=== PATIENT | female | born 1930 | race Caucasian/White ===

== ENCOUNTER → 2016-12-18 | Outpatient (CLI) | payer MEDICARE, OTHER ==
[2014-07-28 11:00] VITALS: BP 118/65
[~2016-12-18] MED LIST: ALBU8.5H6 IH; ALPR0.25 PO; AMLO2.5T2 PO; ASPI81TA2; ATEN25TA PO; Aspirin PO; BECL8.7A6 IH; BUPR75TA5 PO; CALC-98 PO; CALC200T3 PO; CITA10TA8 PO; DICL50TA2 PO; DICY20TA3 PO; DOCU-27 PO; FISH OIL OMEGA1 EACH PO; FLUT16SP2 NS; GLUC100018 PO; LACT1CAP21 PO; MELA1TAB13 PO; METO10TA81 PO; MULT-246 PO; OMEP40CA5 PO; OVAR; OXYM30SP NS; PILO5TAB16 PO; PLAN450T PO; PRED5TAB PO; SIMV10TA3 PO; SULF1TAB24 PO; VALA10005 PO; ZOLP5TAB PO; [UNRECOGNIZED DRUG - OTHER]
[2016-12-18 08:23] LABS: BASO # 0.1 x10^3/uL (0.0-0.2); BASO % 1 % (0-3); EOS % 3 % (0-3); HEMOGLOBIN 12.5 g/dL (12.0-15.5); LYMPH # 1.3 x10^3/uL (1.0-4.8); LYMPH % 21 % (24-48); MEAN CORPUSCULAR HEMOGLOBIN 31 pg (25-35); MEAN CORPUSCULAR HGB CONC 34 g/dL (31-37); MEAN CORPUSCULAR VOLUME 93 fL (79-100); MONO % 6 % (0-9); NEUT % 70 % (31-73); PLATELET COUNT 205 x10^3/uL (140-400); RED BLOOD COUNT 3.97 x10^6/uL (3.50-5.40); RED CELL DISTRIBUTION WIDTH 13.6 % (11.5-14.5); WHITE BLOOD COUNT 6.3 x10^3/uL (4.0-11.0)
[2016-12-18 08:33] LABS: ALBUMIN 3.6 g/dL (3.4-5.0); ALBUMIN/GLOBULIN RATIO 0.8 (1.0-1.7); C-REACTIVE PROTEIN 2.2 mg/L (0-3.3); CALCIUM 9.4 mg/dL (8.5-10.1); CREATININE 1.3 mg/dL (0.6-1.0); GFR 38.9; POTASSIUM 3.8 mmol/L (3.5-5.1); TOTAL BILIRUBIN 0.3 mg/dL (0.2-1.0); TOTAL PROTEIN 8.1 g/dL (6.4-8.2)
[2016-12-18 10:24] LABS: BILIRUBIN,URINE NEGATIVE (NEG); GLUCOSE,URINE NEGATIVE (NEG); NITRITE,URINE NEGATIVE (NEG); PROTEIN,URINE NEGATIVE (NEG-TRACE); UROBILINOGEN,URINE 0.2 mg/dL (0.2 mg/dL)
[2016-12-18 10:48] LABS: BACTERIA,URINE 0 /HPF (0-FEW); RBC,URINE 0 /HPF (0-2); SQUAMOUS EPITHELIAL CELL,UR FEW /LPF; WBC,URINE OCC /HPF (0-4)
[2016-12-18 17:14] LABS: C3 COMPLEMENT 91 mg/dL (82-167); C4 COMPLEMENT 7 mg/dL (14-44)
== END | disposition home or self-care (01) ==
LOC: LAB 07:50
PROVIDERS: ATTEND Nurse Practitioner
DX: M35.9 Systemic involvement of connective tissue, unspecified (principal)
CPT/HCPCS: 36415; 80053; 81001; 85027; 85651; 86140; 86160

== ENCOUNTER → 2017-09-06 | Outpatient (CLI) | payer MEDICARE, OTHER | END | disposition home or self-care (01) | LOC: KCIC MRI 09:24 | DX: S73.192A Other sprain of left hip, initial encounter (principal); M76.01 Gluteal tendinitis, right hip; R60.0 Localized edema; X58.XXXA Exposure to other specified factors, initial encounter; Y93.89 Activity, other specified; Y92.89 Other specified places as the place of occurrence of the external cause; Y99.8 Other external cause status | CPT/HCPCS: 73721 ==

== ENCOUNTER → 2019-06-18 | Outpatient (CLI) | payer OTHER ==
[2014-07-28 11:00] VITALS: BP 118/65
[~2019-06-18] MED LIST changes: +ASPI-630; -ASPI81TA2; +DOCU-109 PO; -DOCU-27 PO; +OMEP40CA45 PO; -OMEP40CA5 PO
--- NOTE | 2019-06-18 14:18 | KCIC ---
MRI Lumbar Spine without contrast History: Right sciatica, chronic pain into the right hip and right lower extremity Technique: Multiplanar, multi sequential noncontrast MR imaging was performed of the lumbar spine. Comparison: None Findings: There is some motion degradation. Lumbar vertebral body stature is maintained. There is minimal grade 1 anterior spondylolisthesis at L4-5, negligible anterior spondylolisthesis L3-4 and minimal posterior subluxation L1 relative to L2 and T12 relative to L1. There is no significant marrow edema. There is mild to moderate levoscoliosis centered near L2. There is mild right lateral subluxation L1 relative to L2. T12-L1: There is negligible posterior bulge. Spinal canal is adequate. Neural foramina are adequate. L1-L2: There is minimal bulge. There is mild indentation upon the ventral thecal sac, very mild narrowing of the far right lateral recess. There is mild buckling of the ligamentum flavum. Left neural foramen is adequate. There is mild posterior narrowing of the right neural foramen by facet. There is small hemangioma of the right L1 vertebral body. L2-L3: There is mild buckling of the ligamentum flavum and facet degenerative change. Neural foramina and spinal canal are adequate. L3-L4: There is moderate buckling of the ligamentum flavum and [id number] facet degenerative change. There is minimal narrowing of the far right lateral recess from posteriorly. Left neural foramen is adequate, mild narrowing of the right neural foramen primarily from posteriorly by facet and ligamentum flavum. L4-L5: There is partial uncovering of the posterior aspect of the disc due to spondylolisthesis with superimposed bulge. There is moderate to severe buckling of the ligamentum flavum and mild facet hypertrophic change. There is minimal fluid in the facet articulations greater on the right. Combination of findings results in moderate to severe spinal stenosis with limited preserved subarachnoid space, lateral recess stenosis bilaterally with contact of the descending L5 nerve roots. There is moderate left and mild right neural foramina compromise. L5-S1: There is minimal disc osteophyte complex in the inferior left neural foramen and left extraforaminal region. Spinal canal is adequate. There is moderate to severe narrowing of the left neural foramen greater distally with contact of the exiting left L5 nerve root by disc osteophyte complex. Right neural foramen is adequate. Impression: 1. There is moderate to severe spinal stenosis L4-5 with limited preserved subarachnoid space, lateral recess stenosis bilaterally with degree of contact of the descending L5 nerve roots. 2. There is moderate to severe narrowing of the left L5-S1 neural foramen, moderate narrowing on the left at L4-5, other minimal narrowing of the neural foramina as stated. 3. There is lumbar levoscoliosis. There is multilevel mild abnormal alignment as stated, multilevel facet degenerative change. Electronically signed by: Javier Benton MD (06/18/2019 2:15 PM) [facility] [place]
== END | disposition home or self-care (01) ==
LOC: KCIC MRI 13:03
PROVIDERS: ATTEND Orthopaedic Surgery
DX: M43.16 Spondylolisthesis, lumbar region (principal); M48.07 Spinal stenosis, lumbosacral region; M47.816 Spondylosis without myelopathy or radiculopathy, lumbar region; M25.78 Osteophyte, vertebrae; G89.29 Other chronic pain; M41.86 Other forms of scoliosis, lumbar region
CPT/HCPCS: 72148

== ENCOUNTER → 2019-07-21 | Outpatient (CLI) | payer MEDICARE, OTHER ==
[2014-07-28 11:00] VITALS: BP 118/65
[~2019-07-21] MED LIST changes: +IOHEXOL 180 MG/ML 10 ML VIAL. ONE; -OXYM30SP NS; +OXYM30SP25 NS; +SIMV10TA15 PO; -SIMV10TA3 PO; +methylPREDNISolone ACETATE 40 MG/ML VIAL. ONE; +methylPREDNISolone ACETATE 80 MG/ML VIAL. ONE
--- NOTE | 2019-07-21 14:17 | PAIN ---
DATE OF SERVICE: 07/21/2019 INITIAL CONSULTATION FOR PAIN CLINIC CHIEF COMPLAINT: Low back and right lower extremity pain. HISTORY OF PRESENT ILLNESS: This is an 88-year-old female who presents with history of pain in the low back, right greater than left lower extremity for many years, worse over the past 1 year, not a result of any specific injury or action that she is aware of, but reports pain in the low back, right posterior gluteus, lateral thigh, lateral anterior thigh, medial thigh on both sides, worse on the right side, worse with walking, standing, changing positions and with weightbearing activities. The patient reports it is sharp pain, stabbing, intermittent in intensity, but always present, changes during the day with activity, radiating into the lower extremities, again worse on the right, burning and aching in the back as well. She has had physical therapy, chiropractic treatment in the , exercise currently, physical therapy on and off since 1999 and epidural injections, which had helped as well in the . The patient reports she is taking heavy duty aspirin, ibuprofen, and meloxicam. The ibuprofen and aspirin has helped the pain, but meloxicam does not. The patient reports it awakens her from sleep at least 2-4 times a night, does not affect her bowel or bladder control, but does affect her ability to walk. She uses a scooter, walker or cane. She has a walker with her today. The patient rates her disability rating from 0 to 10, 10 being at its worse, a 5 with family and home responsibilities, recreation, social activity, 8 with occupational activities, 5 with self-care and 0 with life support activities. The patient did have an MRI scan of the lumbar spine showing moderate to severe spinal stenosis at L4-L5 with limited preserved subarachnoid space, lateral recess stenosis bilaterally with degree of contact of the descending L5 nerve roots with [id number] narrowing of the left L5-S1 neural foramen, moderate narrowing on the left at L4-L5. PAST MEDICAL HISTORY: Significant for shortness of breath, hypertension, irregular heart rate, gastroesophageal reflux, diverticulitis, arthritis, osteoarthritis of the knees, Sjogren syndrome. PREVIOUS SURGERY: Include cataract extraction, laparoscopic cholecystectomy, ORIF of both wrists and tonsillectomy. CURRENT MEDICATIONS: Include, daily baby aspirin, simvastatin, calcium, Colace, glucosamine, pilocarpine drops, Norvasc, atenolol, Celexa, omeprazole, calcium, melatonin, beclomethasone, Valtrex, Bactrim, lactobacillus, omega 3 oils, multivitamins, dicyclomine, diclofenac, zolpidem, Xanax and albuterol inhaler. ALLERGIES: THE PATIENT IS ALLERGIC TO MORPHINE, CODEINE, TRAMADOL, CEPHALOSPORINS, EQUINE SERUM. FAMILY HISTORY: Significant for respiratory and skin allergies. SOCIAL HISTORY: The patient does drink alcohol 2-4 drinks a month, not use any illegal, illicit or recreational drugs. The patient is a [employer], lives locally at the [facility] in [place], [place]. REVIEW OF SYSTEMS: Review of systems are positive for those items mentioned in history of present illness. All systems reviewed and otherwise negative. It is complete, full and well documented on the patient's chart. PHYSICAL EXAMINATION: VITAL SIGNS: The patient's blood pressure is 125/66, pulse 72, respirations 18, temperature 98.2 degrees Fahrenheit, height is 5 feet 6 inches, weight is 140 pounds. GENERAL: The patient is awake, alert, oriented, appropriate, very pleasant demeanor. HEENT: Showed normocephalic, atraumatic. Extraocular movements are intact and symmetrical. Oral cavity: Mucous membranes moist and pink. Dentition is intact. NECK: Shows anterior throat supple without palpable lymphadenopathy noted. Swallow reflex symmetrical. CHEST: Shows normal on inspection. Breath sounds are clear to auscultation bilaterally. HEART: Shows S1, S2 clear. No murmurs auscultated. ABDOMEN: Shows obese and soft, nontender, nondistended. No palpable organomegaly is noted. No rebound or guarding demonstrated. BACK: Shows spine grossly in the midline. Normal appearing thoracic kyphosis and lumbar lordotic curvature. Lumbar paraspinous muscle shows symmetrical on inspection, on palpation shows some moderate tenderness diffusely bilaterally, but only diffusely without significant radiation. The patient has good rotational motion of lumbar spine, both laterally greater than 10 degrees, right and left as well as extension greater than 10 degrees, forward flexion 45 degrees without significant difficulty, no tenderness over spinous processes, sacrum or sacroiliac regions. EXTREMITIES: Lower extremities show deep tendon reflexes 2+ in the patellar, 1+ tendo-calcaneus tendons. Motor exam is approximately 4 on a scale of 5, but equal and symmetrical with dorsiflexion, extension, quadriceps, and hamstring flexion. Peripheral pulses are 1+ posterior tibia. No peripheral edema is noted bilaterally. Lower extremities are warm and dry to touch, equal in color and appearance. Straight leg raise noted to be negative for reproduction of radicular symptoms bilaterally as is Gaenslen's and Fransico's maneuvers bilaterally. The patient is able to stand, has difficulty trying to stand from a seated position, she uses the arms of the chair significantly to help her out of the seat, difficulty trying to stand on her toes as she loses balance easily. She is using a walker to ambulate, has a slight shuffling gait, but no significant favor right or left lower extremity with ambulation. SKIN: Shows warm and dry, good turgor. No edema. No sores, rashes or bruising throughout. IMPRESSION: 1. This is an 88-year-old female with long history of low back and right greater than left lower extremity pain in a radicular fashion. 2. MRI scan of lumbar spine as noted. 3. Hypertension. 4. Arthritis. PLAN: Options were discussed with the patient including conservative medical managements, physical therapies and interventional techniques and she would like to pursue interventional techniques. We discussed a lumbar epidural steroid injection using description as well as anatomical models to describe the procedure. Risks were then discussed including, but not limited to bleeding, infection, possibility of epidural hematoma, subsequent neurological compromise, dural puncture, headaches, spinal cord and/or nerve damage, side effects of steroid medication and poor results regarding pain control. The patient understands and wished to proceed. The patient will return to clinic in approximately 2 weeks for followup. She was counseled as to return appointment, activity level and side effects to be aware of. DIAGNOSES: Lumbar radiculopathy with lumbar degenerative disk disease, lumbar spinal stenosis. PROCEDURE: Lumbar epidural steroid injection, translaminar approach at L4-L5 level using C-arm fluoroscopic guidance under sterile prep and drape using local anesthetic. MEDICATION INJECTED: A total of 120 mg Depo-Medrol plus 10 mL of preservative-free normal saline and 2 mL of contrast. CONDITION AT DISCHARGE: Stable. The patient tolerated the procedure well, had no complications. TUNDE BERGER MD DR: LINK/zana JOB#: [id number] / [id number] [facility] RYANN NAJERA MD
== END ==
LOC: PNCL 08:49
PROVIDERS: ATTEND Anesthesiology
DX: M51.16 Intervertebral disc disorders with radiculopathy, lumbar region (principal); M48.061 Spinal stenosis, lumbar region without neurogenic claudication; I10 Essential (primary) hypertension; K21.9 Gastro-esophageal reflux disease without esophagitis; Z87.39 Personal history of other diseases of the musculoskeletal system and connective tissue; Z90.49 Acquired absence of other specified parts of digestive tract; Z98.890 Other specified postprocedural states; Z98.49 Cataract extraction status, unspecified eye; Z88.6 Allergy status to analgesic agent; Z88.1 Allergy status to other antibiotic agents; Z88.5 Allergy status to narcotic agent; Z88.8 Allergy status to other drugs, medicaments and biological substances; Z72.89 Other problems related to lifestyle; Z96.1 Presence of intraocular lens
CPT/HCPCS: 62323; J1030; J1040; Q9965

== ENCOUNTER → 2019-08-04 | Outpatient (CLI) | payer MEDICARE, OTHER ==
[2014-07-28 11:00] VITALS: BP 118/65
[~2019-08-04] MED LIST changes: -IOHEXOL 180 MG/ML 10 ML VIAL. ONE; -methylPREDNISolone ACETATE 40 MG/ML VIAL. ONE; -methylPREDNISolone ACETATE 80 MG/ML VIAL. ONE
--- NOTE | 2019-08-04 13:32 | PAIN ---
DATE OF SERVICE: 08/04/2019 PROGRESS NOTE FOR PAIN CLINIC DIAGNOSES: Lumbar radiculopathy with lumbar degenerative disk disease, lumbar spinal stenosis. HISTORY OF PRESENT ILLNESS: The patient is an 88-year-old female who returns for followup status post lumbar epidural steroid injection x 1. The patient reports about 100% improvement with her back pain and right lower extremity pain. The patient reports she is very pleased with her progress and increasing her activity with greater ease and comfort, doing work activities, household activities, traveling with greater ease and comfort, walking better. The patient reports she is sleeping well at night, does not awaken her from sleep. The patient reports the pain is a 5 on a scale of 10 at its worst over the past week, 1 on average, 1 at its least and is a 1 today. The patient reports she is very pleased with her progress, reports only some pain in the low back itself, occasionally in the right hip, tight and stabbing, but much better. The patient reports no new motor or sensory deficits, no new bowel or bladder incontinence or other complaints. PHYSICAL EXAMINATION: VITAL SIGNS: The patient's blood pressure 119/70, pulse 61, respirations 18, temperature 97.9 degrees Fahrenheit, height is 61 inches and weight is 134 pounds. GENERAL: The patient is awake, alert, oriented, appropriate, very pleasant demeanor. HEENT: Shows normocephalic, atraumatic. Extraocular movements are intact and symmetrical. Oral cavity, mucous membranes moist and pink. NECK: Shows anterior throat supple. CHEST: Shows normal on inspection. Breath sounds are clear bilaterally. HEART: Shows S1, S2 clear. No murmurs auscultated. ABDOMEN: Soft, nontender, nondistended. BACK: Shows spine grossly in the midline. Lumbar paraspinous muscle shows symmetrical on inspection, on palpation shows some moderate tenderness diffusely bilaterally, but only diffusely without radiation. The patient has good rotational motion of lumbar spine, both laterally as well as extension and flexion. EXTREMITIES: Lower extremities show deep tendon reflexes 2+ in the patellar, 1+ tendo-calcaneus tendons. Motor exam is approximately 4 on a scale of 5, but equal and symmetrical bilaterally with dorsiflexion, extension, quadriceps and hamstring flexion. Peripheral pulses are 1+. No peripheral edema is noted. Options were discussed with the patient. The patient's old chart was reviewed as her current medication regimen updated. Current review of systems updated today as well. We will hold on any further injections at this time as the patient is doing quite a bit better, encouraged her to increase activity as tolerated. She will maintain doing stretching and strengthening exercises as well as walking daily and will follow up at this time on as needed basis. TUNDE BERGER MD DR: LINK/zana JOB#: [id number] / [id number]
== END | disposition home or self-care (01) ==
LOC: PNCL 09:54
PROVIDERS: ATTEND Anesthesiology
DX: M51.16 Intervertebral disc disorders with radiculopathy, lumbar region (principal); M48.061 Spinal stenosis, lumbar region without neurogenic claudication
CPT/HCPCS: G0463

== ENCOUNTER → 2019-10-22 | Outpatient (CLI) | payer MEDICARE, OTHER ==
[2014-07-28 11:00] VITALS: BP 118/65
[~2019-10-22] MED LIST changes: +HYDR200T71 PO; +IOHEXOL 180 MG/ML 10 ML VIAL. ONE; +methylPREDNISolone ACETATE 40 MG/ML VIAL. ONE; +methylPREDNISolone ACETATE 80 MG/ML VIAL. ONE
--- NOTE | 2019-10-22 13:25 | PAIN ---
DATE OF SERVICE: 10/22/2019 PROGRESS NOTE FOR PAIN CLINIC DIAGNOSIS: Lumbar radiculopathy with lumbar degenerative disk disease, lumbar spinal stenosis. HISTORY OF PRESENT ILLNESS: The patient is an 88-year-old female who returns for followup status post lumbar epidural steroid injection x 1 on 07/21/2019, patient did very well with 100% improvement at that time. The patient reports the pain is returning now in the low back and right leg, mostly in the posterior gluteus, lateral thigh, anterior thigh, medial thigh and lateral lower leg. The patient reports it is aching and tight cramping, radiating, becoming more constant and has been waking her from sleep at night as well over the past 1-2 weeks. The patient reports it is an 8 on a scale of 10, 9 at its worst, 8 on average, 5 at its least and is a 5 today. The patient reports no new motor or sensory deficits, but has still significant pain in the low back and right leg. The patient reports it is more noticeable with walking, standing, changing positions. Initially, she was doing very well with all these activities, but is beginning to return. PHYSICAL EXAMINATION: VITAL SIGNS: The patient's blood pressure 133/68, pulse 78, respirations 16, temperature 97.9 degrees Fahrenheit, weight is 130 pounds. GENERAL: The patient is awake, alert, oriented, appropriate, very pleasant demeanor. HEENT: Head shows normocephalic, atraumatic. The patient is wearing eyeglasses. Extraocular movements are intact and symmetrical. Oral cavity: Mucous membranes moist and pink. NECK: Shows anterior throat supple without palpable adenopathy noted. Full rotational motion of the cervical spine without difficulty. CHEST: Shows normal on inspection. Breath sounds clear to auscultation bilaterally. HEART: Shows S1, S2 clear. No murmurs auscultated. ABDOMEN: Soft, nontender, nondistended. No palpable organomegaly is noted. No rebound or guarding demonstrated. BACK: Shows spine grossly in the midline. Normal appearing thoracic kyphosis and minor flattening of the lumbar lordotic curvature. Lumbar paraspinous muscle shows symmetrical on inspection. On palpation shows some moderate tenderness diffusely bilaterally, diffusely without significant radiation. The patient has good rotational motion of the lumbar spine, both laterally as well as extension and flexion. EXTREMITIES: Lower extremities show deep tendon reflexes 2+ in the patellar, 1+ tendo-calcaneus tendons. Motor exam is approximately 4 on a scale of 5, but equal and symmetrical bilaterally with extension, flexion, quadriceps and hamstring flexion bilaterally as well. Peripheral pulses are 1+ in the posterior tibia. No peripheral edema is noted. Options were discussed with the patient. The patient's old chart was reviewed as her current medication regimen updated. Current review of systems updated today as well. We will proceed with a second in a series of lumbar epidural steroid injection today with fluoroscopic guidance. Risks were again discussed including, but not limited to bleeding, infection, possibility of epidural hematoma, subsequent neurological compromise, dural puncture, headaches, spinal cord and/or nerve damage, side effects of steroid medication and poor results regarding pain control. The patient understands and wished to proceed. The patient will return to clinic in approximately 2 weeks for followup. She was counseled on return appointment, activity level and side effects to be aware of. DIAGNOSIS: Lumbar radiculopathy with lumbar degenerative disk disease, lumbar spinal stenosis. PROCEDURE: Lumbar epidural steroid injection, translaminar approach at L4-L5 level using C-arm fluoroscopic guidance under sterile prep and drape using local anesthetic. MEDICATION INJECTED: A total of 120 mg Depo-Medrol plus 10 mL of preservative-free normal saline and 2 mL of contrast. CONDITION AT DISCHARGE: Stable. The patient tolerated procedure well, had no complications. TUNDE BERGER MD DR: LINK/zana JOB#: [id number] / [id number]
== END ==
LOC: PNCL 08:46
PROVIDERS: ATTEND Anesthesiology
DX: M51.16 Intervertebral disc disorders with radiculopathy, lumbar region (principal); M48.061 Spinal stenosis, lumbar region without neurogenic claudication
CPT/HCPCS: 62323; J1030; J1040; Q9965

== ENCOUNTER → 2020-01-07 | Outpatient (CLI) | payer MEDICARE, OTHER ==
[2014-07-28 11:00] VITALS: BP 118/65
[~2020-01-07] MED LIST changes: +ASPI-630 PO; +FENT1PAT15 TP; +GABA-585 PO; +MELO15TA23 PO; +TRAZ-118 PO; +VENL150C PO
--- NOTE | 2020-01-07 10:42 | PAIN ---
DATE OF SERVICE: 01/07/2020 PROGRESS NOTE FOR PAIN CLINIC DIAGNOSES: Lumbar radiculopathy with lumbar degenerative disk disease, lumbar spinal stenosis. HISTORY OF PRESENT ILLNESS: The patient is an 89-year-old female who returns for followup status post lumbar epidural steroid injection x 2, most recently seen 10/22/2019. The patient reports about 80% improvement in her low back and right lower extremity pain for about almost 2 months. The patient reports that the pain returned in the last week or 2 weeks this month with pain in the right hip, right posterior gluteus, lateral thigh, anterior thigh, medial thigh on the right side only. The patient reports it is worse with walking, standing, changing positions, especially sitting or standing from a seated position, describes as aching and tight, cramping in the right leg, rates as 9 on a scale of 10 at its worst, 7 on average, 4 at its least and is a 7 today. The patient reports no new motor or sensory deficits, no new bowel or bladder incontinence, still significant pain with ambulating, walking, standing, changing positions. Initially, she was doing much better with doing walking distances, household activities, traveling with greater ease and comfort, still reports it does not awaken her from sleep at night. PHYSICAL EXAMINATION: VITAL SIGNS: The patient's blood pressure is 136/75, pulse 80, respirations 18, temperature 98.7 degrees Fahrenheit, height is 5 feet 6 inches, weight is 129 pounds. GENERAL: The patient is awake, alert, oriented, appropriate, very pleasant demeanor. HEENT: Shows normocephalic, atraumatic. Extraocular movements intact and symmetrical. The patient is wearing eyeglasses. Extraocular movements are intact. Oral cavity: Mucous membranes moist and pink. Dentition is intact. NECK: Shows anterior throat supple without palpable lymphadenopathy noted. Swallow reflex symmetrical. CHEST: Shows normal on inspection. Breath sounds are clear bilaterally. HEART: Shows S1, S2 clear. No murmurs auscultated. ABDOMEN: Soft, nontender, nondistended. No palpable organomegaly is noted. No rebound or guarding demonstrated. BACK: Shows spine grossly in the midline. Normal appearing thoracic kyphosis and minor flattening of lumbar lordotic curvature. Lumbar paraspinous muscle shows symmetrical on inspection, on palpation shows some moderate tenderness diffusely bilaterally going diffusely without significant radiation. The patient has good rotational motion of lumbar spine, both laterally as well as extension and flexion without significant difficulty. EXTREMITIES: Lower extremities show deep tendon reflexes 2+ in the patellar, 1+ tendo-calcaneus tendons. Motor exam is approximately 4 on a scale of 5, but equal and symmetrical dorsiflexion, extension, right and left. Quadriceps and hamstring flexion 4/5 and equal bilaterally as well. Peripheral pulses are 1+. No peripheral edema is noted. Options were discussed with the patient. The patient's old chart was reviewed as his current medication regimen updated. Current review of systems updated today as well. We will proceed with a third in the series of lumbar epidural steroid injection today with fluoroscopic guidance. Risks were again discussed including, but not limited to bleeding, infection, possibility of epidural hematoma, subsequent neurological compromise, dural puncture, headaches, spinal cord and/or nerve damage, side effects of steroid medication and poor results regarding pain control. The patient understands and wished to proceed. The patient will return to clinic in approximately 2 weeks for followup. She was counseled on return appointment, activity level and side effects to be aware of. DIAGNOSES: Lumbar radiculopathy with lumbar degenerative disk disease, lumbar spinal stenosis. PROCEDURE: Lumbar epidural steroid injection, translaminar approach at the L4-L5 level using C-arm fluoroscopic guidance under sterile prep and drape using local anesthetic. MEDICATION INJECTED: Total of 120 mg Depo-Medrol plus 10 mL of preservative-free normal saline and 2 mL of contrast. CONDITION AT DISCHARGE: Stable. The patient tolerated the procedure well, had no complications. TUNDE BERGER MD DR: LINK/zana JOB#: [id number] / [id number]
== END | disposition home or self-care (01) ==
LOC: PNCL 09:01
PROVIDERS: ATTEND Anesthesiology
DX: M51.16 Intervertebral disc disorders with radiculopathy, lumbar region (principal); M48.061 Spinal stenosis, lumbar region without neurogenic claudication; Z98.890 Other specified postprocedural states; Z88.6 Allergy status to analgesic agent; Z88.1 Allergy status to other antibiotic agents; Z88.8 Allergy status to other drugs, medicaments and biological substances
CPT/HCPCS: 62323; J1030; J1040; Q9965

== ENCOUNTER → 2020-04-21 | Outpatient (CLI) | payer MEDICARE, OTHER ==
[2014-07-28 11:00] VITALS: BP 118/65
[~2020-04-21] MED LIST changes: +DEXT1DRO7 OP; +DICL100G54 TP; +HYDR2TAB31 PO; -IOHEXOL 180 MG/ML 10 ML VIAL. ONE; +PROAIR RESPICL90 MCG IH; -methylPREDNISolone ACETATE 40 MG/ML VIAL. ONE; -methylPREDNISolone ACETATE 80 MG/ML VIAL. ONE
--- NOTE | 2020-04-21 13:49 | KCIC ---
MRI Lumbar Spine without contrast History: Lumbar radiculopathy, spasms, severe right leg pain Technique: Multiplanar, multi sequential noncontrast MR imaging was performed of the lumbar spine. Comparison: June 18, 2019 Findings: There is some motion degradation. Lumbar vertebral body stature is unchanged overall preserved. There is again mild grade 1 anterior spondylolisthesis at L4-5, to a lesser degree at L3-4. There is also minimal posterior subluxation of L1 relative to L2 and T12 relative to L1. There is again [id number] levoscoliosis centered near L2. There is again mild right lateral subluxation L1 relative to L2. There is mild to moderate L5-S1 degenerative disc disease, also greater anteriorly at T12-L1 and minimally at L1-L2, mild disc desiccation L2-3 through L4-5. T12-L1: There is again minimal posterior bulge. Spinal canal and neural foramina are overall adequate. L1-L2: There is again negligible bulge superimposed on the minimally posteriorly subluxed L1 vertebral body margin. Spinal canal is not significantly narrowed. There is minimal buckling of the ligamentum flavum. There is mild posterior narrowing of the right neural foramen by facet, left neural foramen adequate. L2-L3: There is again mild facet degenerative change and buckling of the ligamentum flavum and a negligible bulge. Spinal canal and neural foramina are adequate. L3-L4: There is again [id number] buckling of the ligamentum flavum and facet degenerative change. There is mild narrowing of the far right lateral recess from posteriorly. There is mild narrowing of the right neural foramen, left neural foramen adequate. L4-L5: There is again broad posterior bulge. There is again buckling of the ligamentum flavum and mild facet degenerative change. Combination of findings again results in moderate to severe spinal stenosis with limited preserved subarachnoid space. There is again lateral recess stenosis bilaterally with contact of the descending L5 nerve roots. There is moderate to severe narrowing of the left neural foramen mostly from posteriorly by facet although also bulge at the inferior proximal margin. There is very mild narrowing of the right neural foramen. L5-S1: There is minimal disc osteophyte complex in the inferior left neural foramen and left extraforaminal region as seen previously, again moderate to severe narrowing of the left neural foramen with contact exiting left L5 nerve root. Spinal canal is adequate. Right neural foramen is adequate. Impression: 1. Findings are similar compared with the previous May 2019 exam. There is again moderate to severe spinal stenosis at L4-5 with lateral recess stenosis and contact of the descending L5 nerve roots bilaterally. There is moderate to severe narrowing of the left L4-5 and L5-S1 neural foramina, other minimal narrowing on the right at L1-2, L3-4, and L4-5. There is multilevel mild abnormal alignment as stated, multilevel facet degenerative change. There is lumbar levoscoliosis. Electronically signed by: Javier Benton MD (04/21/2020 1:47 PM) [id number]
== END ==
LOC: KCIC MRI 12:28
PROVIDERS: ATTEND Internal Medicine
DX: M51.37 Other intervertebral disc degeneration, lumbosacral region (principal); M48.062 Spinal stenosis, lumbar region with neurogenic claudication; M25.78 Osteophyte, vertebrae
CPT/HCPCS: 72148

== ENCOUNTER 2020-04-28 18:42 | Inpatient (IN) | payer MEDICARE, OTHER ==
[~2020-04-28] VITALS: Ht 167.6 cm; Wt 59.1 kg
[~2020-04-28 18:42] MED LIST changes: -DEXT1DRO7 OP; -DICL100G54 TP; -HYDR2TAB31 PO; -PROAIR RESPICL90 MCG IH
[2020-04-28 19:03] LABS: BASO % 1 % (0-3); EOS # 0.1 x10^3/uL (0.0-0.7); EOS % 3 % (0-3); HEMOGLOBIN 10.1 g/dL (12.0-15.5); LYMPH # 0.9 x10^3/uL (1.0-4.8); LYMPH % 18 % (24-48); MEAN CORPUSCULAR HEMOGLOBIN 32 pg (25-35); MEAN CORPUSCULAR HGB CONC 35 g/dL (31-37); MEAN CORPUSCULAR VOLUME 92 fL (79-100); MONO # 0.4 x10^3/uL (0.0-1.1); MONO % 8 % (0-9); NEUT # 3.7 x10^3/uL (1.8-7.7); NEUT % 71 % (31-73); PLATELET COUNT 252 x10^3/uL (140-400); RED BLOOD COUNT 3.13 x10^6/uL (3.50-5.40); RED CELL DISTRIBUTION WIDTH 14.3 % (11.5-14.5); WHITE BLOOD COUNT 5.2 x10^3/uL (4.0-11.0)
--- NOTE | 2020-04-28 19:16 | PHYS DOC ---
Past Medical History Past Medical History: GERD, Heart Disease, Hypertension, STD, Other Additional Past Medical Histor: vaginal herpes Past Surgical History: Cholecystectomy, Other Additional Past Surgical Histo: right wrist, "and a few others" Smoking Status: Former Smoker Alcohol Use: None Drug Use: None General Adult EDM: Chief Complaint: MECHANICAL FALL HPI: HPI: The history was obtained from the patient. Patient is a 89-year-old female who presents with a chief complaint of left wrist injury. Patient states just prior to arrival she fell with an outstretched arm. She noted immediate pain and deformity to her left wrist. She does note some bleeding to the wrist site. States she has had orthopedic surgery in the past by Dr. Herring. Denies any her head or any loss of consciousness. Has been able to ambulate since the fall. Notes the pain is aching and constant. Movement makes the pain worse. Nothing makes the pain better. No other complaints. Review of Systems: Review of Systems: Constitutional: Denies fever or chills. [] Eyes: Denies change in visual acuity. [] HENT: Denies nasal congestion or sore throat. [] Respiratory: Denies cough or shortness of breath. [] Cardiovascular: Denies chest pain or edema. [] GI: Denies abdominal pain, nausea, vomiting, bloody stools or diarrhea. [] : Denies dysuria. [] Musculoskeletal: Positive for wrist pain and fall Integument: Denies rash. [] Neurologic: Denies headache, focal weakness or sensory changes. [] Endocrine: Denies polyuria or polydipsia. [] Lymphatic: Denies swollen glands. [] Psychiatric: Denies depression or anxiety. [] Heart Score: Risk Factors: Risk Factors: DM, Current or recent (<one month) smoker, HTN, HLP, family history of CAD, obesity. Risk Scores: Score 0 - 3: 2.5% MACE over next 6 weeks - Discharge Home Score 4 - 6: 20.3% MACE over next 6 weeks - Admit for Clinical Observation Score 7 - 10: 72.7% MACE over next 6 weeks - Early Invasive Strategies Allergies: Allergies: Allergies Coded Allergies Type Severity Reaction Last Updated Verified Horse/Equine Containing Products Allergy Severe Itching 12/07/13 Yes tramadol Allergy Severe Anxiety 12/07/13 Yes Cephalosporins Allergy Intermediate Diarrhea 07/26/14 Yes cefditoren Allergy Intermediate Diarrhea 07/26/14 Yes codeine Allergy Intermediate 12/07/13 Yes levofloxacin Allergy Intermediate 12/07/13 Yes morphine Allergy Intermediate 12/07/13 Yes Physical Exam: PE: Constitutional: Well developed, well nourished, no acute distress, non-toxic appearance. [] HENT: Normocephalic, atraumatic, bilateral external ears normal, oropharynx moist, no oral exudates, nose normal. [] Eyes: PERRLA, EOMI, conjunctiva normal, no discharge. [] Neck: Normal range of motion, no tenderness, supple, no stridor. [] Cardiovascular:Heart rate regular rhythm, no murmur [] Lungs & Thorax: Bilateral breath sounds clear to auscultation [] Abdomen: soft, no tenderness, no masses, no pulsatile masses. [] Skin: Warm, dry, no erythema, no rash. [] Back: No tenderness, no CVA tenderness. [] Extremities: Obvious deformity to the left wrist. Swelling and ecchymosis noted. Distal ulna tip visible through skin. +2-4 radial pulse on the left. Sensation intact in all nerve distributions. Technical Report Writer strength slightly weakened but intact. No elbow pain. Neurologic: Alert and oriented X 3, normal motor function, normal sensory function, no focal deficits noted. [] Psychologic: Affect normal, judgement normal, mood normal. [] Current Patient Data: Labs: Laboratory Tests Test 04/28/20 18:53 White Blood Count 5.2 x10^3/uL (4.0-11.0) Red Blood Count 3.13 x10^6/uL (3.50-5.40) L Hemoglobin 10.1 g/dL (12.0-15.5) L Hematocrit 29.0 % (36.0-47.0) L Mean Corpuscular Volume 92 fL (79-100) Mean Corpuscular Hemoglobin 32 pg (25-35) Mean Corpuscular Hemoglobin Concent 35 g/dL (31-37) Red Cell Distribution Width 14.3 % (11.5-14.5) Platelet Count 252 x10^3/uL (140-400) Neutrophils (%) (Auto) 71 % (31-73) Lymphocytes (%) (Auto) 18 % (24-48) L Monocytes (%) (Auto) 8 % (0-9) Eosinophils (%) (Auto) 3 % (0-3) Basophils (%) (Auto) 1 % (0-3) Neutrophils # (Auto) 3.7 x10^3/uL (1.8-7.7) Lymphocytes # (Auto) 0.9 x10^3/uL (1.0-4.8) L Monocytes # (Auto) 0.4 x10^3/uL (0.0-1.1) Eosinophils # (Auto) 0.1 x10^3/uL (0.0-0.7) Basophils # (Auto) 0.0 x10^3/uL (0.0-0.2) Laboratory Tests 04/28/20 18:53 Vital Signs: Vital Signs Date Time Temp Pulse Resp B/P (MAP) Pulse Ox O2 Delivery O2 Flow Rate FiO2 04/29/20 03:37 62 135/46 (75) 04/29/20 03:00 97.9 18 100 Room Air 97.9 04/29/20 00:58 10 EKG: EKG: [] Radiology/Procedures: Radiology/Procedures: [facility] [address] [place] [address] IMAGING REPORT Signed PATIENT: JOSIAS BABIN ACCOUNT: [id number] : 1930 LOCATION: ER AGE: 89 SEX: F EXAM STATUS: REG ER ORD. PHYSICIAN: BOB SMITH DO REASON: left wrist pain PROCEDURE: WRIST 3V LEFT EXAM: PA, lateral and oblique views, left wrist DATE: 04/28/2020 6:53 PM INDICATION: Reason: left wrist pain / Spl. Instructions: / History: , fracture. COMPARISON: No prior FINDINGS: Views of the left wrist show transverse fracture through the distal radius and ulna in apex dorsal angulation with near full shaft with apex palmar displacement. The ulnar fracture is likely an open fracture. Ulnar styloid avulsion fracture is also seen. Advanced thumb CMC joint osteoarthritis. Scattered IP joint degenerative changes are partially profiled. No radiocarpal dislocation. IMPRESSION: Displaced distal radial and ulnar fractures as above with likely open ulnar fracture. Electronically signed by: Javier Kuo MD (04/28/2020 8:25 PM) [facility] DICTATED and SIGNED BY: JAVIER KUO MD DATE: 04/28/202024 [] Course & Med Decision Making: Course & Med Decision Making Pertinent Labs and Imaging studies reviewed. (See chart for details) [] Patient is a very pleasant 89-year-old female who presents with chief complaint of left wrist injury status post fall. Exam noted above. Clinically the patient does appear to have an open left distal wrist fracture. Orthopedic surgery was consulted. Given the open nature of the injury they did present to bedside. She was given 1 g Ancef. She was splinted prior to orthopedic surgery arrival. She was taken to OR for open washout and likely plating. She will be hospitalized to the hospitalist postoperatively. Remained hemodynamically stable with pain well controlled in the emergency department. Dragon Disclaimer: Dragon Disclaimer: This electronic medical record was generated, in whole or in part, using a voice recognition dictation system. Departure Departure Impression: Primary Impression: Open fracture of left distal radius and ulna Disposition: ADMITTED INPATIENT Condition: STABLE Referrals: KAYE FREY MD (PCP) Justicifation of Admission Dx: Justifications for Admission: Justification of Admission Dx: Yes Comments: open L distal wrist fxs BOB SMITH DO Apr 28, 2020 19:16
[2020-04-28 19:20] LABS: CALCIUM 9.4 mg/dL (8.5-10.1); CREATININE 1.4 mg/dL (0.6-1.0); GFR 35.4; POTASSIUM 4.3 mmol/L (3.5-5.1)
[2020-04-28] MEDS ORDERED: ceFAZolin SODIUM IV Push 1 GM VIAL. IVP ONE (19:30)
[2020-04-28] MEDS ORDERED: fentaNYL PF VIAL 100 MCG/2 ML VIAL IVP ONE (19:30)
[2020-04-28] MEDS ORDERED: BUPIVACAINE-EPI 0.5%-1:200000 MPF 30 ML VIAL. INJ ONE ×2 (20:00→20:30)
--- NOTE | 2020-04-28 20:28 | RAD ---
EXAM: PA, lateral and oblique views, left wrist DATE: 04/28/2020 6:53 PM INDICATION: Reason: left wrist pain / Spl. Instructions: / History: , fracture. COMPARISON: No prior FINDINGS: Views of the left wrist show transverse fracture through the distal radius and ulna in apex dorsal angulation with near full shaft with apex palmar displacement. The ulnar fracture is likely an open fracture. Ulnar styloid avulsion fracture is also seen. Advanced thumb CMC joint osteoarthritis. Scattered IP joint degenerative changes are partially profiled. No radiocarpal dislocation. IMPRESSION: Displaced distal radial and ulnar fractures as above with likely open ulnar fracture. Electronically signed by: Javier Villagran MD (04/28/2020 8:25 PM) [facility]ANCK
--- NOTE | 2020-04-28 20:51 | RAD ---
Examination: ELBOW LEFT 3V, WRIST 3V LEFT History: Reason: left elbow pain / Spl. Instructions: / History: Comparison/Correlation: None Findings: 3 view examination left elbow and 3 view examination left wrist performed. Cast material noted throughout the left elbow, forearm, and wrist. Degenerative narrowing of the lateral compartment of the elbow noted. Comminuted, displaced fractures of the distal radial metaphysis noted to extend intra-articularly are similar in orientation compared to images acquired earlier as part of a separate exam this evening. Oblique fracture of the distal ulnar metaphysis noted. Fracture of the ulnar styloid noted. Mild reduction in distal ulnar fracture. Degenerative remodeling of the left first carpometacarpal joint noted. Soft tissue swelling noted about the wrist. Impression: No significant change in orientation of the distal radial comminuted fractures. Mild reduction of the distal ulnar fracture. Electronically signed by: Bashir Toth MD (04/28/2020 8:49 PM) [id number]
[2020-04-28] MEDS ORDERED: MORPHINE SULFATE 2 MG/ML VIAL. IV PRN (21:15)
[2020-04-28] MEDS ORDERED: ONDANSETRON PF 4 MG/2 ML VIAL. IV PRN (21:15)
[2020-04-28] MEDS ORDERED: PROPOFOL 10 MG/ML (20ML) VIAL. IV ONE (22:10)
[2020-04-28] MEDS ORDERED: fentaNYL PF VIAL 100 MCG/2 ML VIAL ONE (22:10)
[2020-04-28] MEDS ORDERED: LIDOCAINE 2% PF 5 ML VIAL. ONE (22:10)
[2020-04-28] MEDS ORDERED: BUPIVACAINE MPF 0.5% 30 ML VIAL. ONE (22:22)
[2020-04-28] MEDS ORDERED: IV RINGERS,LACTATED 1000ML 1,000 ML IV SCH (22:22)
[2020-04-28] MEDS ORDERED: LIDOCAINE 1% Multi-Dose 20 ML VIAL. ONE (22:22)
[2020-04-28] MEDS ORDERED: PROCHLORPERAZINE 10 MG/2 ML VIAL. IV PRN (22:30)
[2020-04-28] MEDS ORDERED: LIDOCAINE 1% PF 2 ML VIAL. ID PRN (22:30)
[2020-04-28] MEDS ORDERED: FAMOTIDINE 20 MG/2 ML VIAL ONE (22:38)
--- NOTE | 2020-04-28 23:17 | PDOC2 ---
CONSULT Date of Consult Date of Consult DATE: 04/28/20 TIME: 22:59 Reason for Consult Reason for Consult: Open left wrist fracture Referring Physician Referring Physician: Emergency department Identification/Chief Complaint Chief Complaint Left wrist pain Source Source: Chart review, Patient History of Present Illness Reason for Visit: Patient is a very pleasant 89-year-old female who had a fall in the dining guerra at the [facility] and developed deformity and wrist pain as well as immediate bleeding and was brought into the emergency department. I was asked to see her in consultation for concern over open fracture. She denies any preceding symptoms including dizziness, lightheadedness, feelings of an irregular heartbeat. She was splinted in the emergency department and given Ancef. She tells me that her wrist hurts but it is tolerable. She denies any abnormal sensations in her hand. She mentions that she has had prior surgery on hardware removal on this wrist before. Family History Family History: No Significant Social History ALCOHOL: none Drugs: None Current Medications Current Medications Current Medications Cefazolin Sodium (Ancef) 1 gm 1X ONCE IVP Last administered on 04/28/20at 19:42; Start 04/28/20 at 19:30; Stop 04/28/20 at 19:31; Status DC Fentanyl Citrate (Fentanyl 2ml Vial) 50 mcg 1X ONCE IVP Last administered on 04/28/20at 19:43; Start 04/28/20 at 19:30; Stop 04/28/20 at 19:31; Status DC Bupivacaine HCl/ Epinephrine Bitart (Sensorcain-Epi 0.5%-1:023197 Mpf) 30 ml 1X ONCE INJ Last administered on 04/28/20at 20:07; Start 04/28/20 at 20:00; Stop 04/28/20 at 20:01; Status DC Bupivacaine HCl/ Epinephrine Bitart (Sensorcain-Epi 0.5%-1:296375 Mpf) 30 ml 1X ONCE INJ Last administered on 04/28/20at 20:19; Start 04/28/20 at 20:30; Stop 04/28/20 at 20:31; Status DC Ondansetron HCl (Zofran) 4 mg PRN Q8HRS PRN IV NAUSEA/VOMITING 1ST CHOICE; Start 04/28/20 at 21:15; Stop 04/29/20 at 21:14 Morphine Sulfate (Morphine Sulfate) 2 mg PRN Q2HR PRN IV SEVERE PAIN 7-10; Start 04/28/20 at 21:15; Stop 04/29/20 at 21:14 Propofol (Diprivan) 200 mg STK-MED ONCE IV ; Start 04/28/20 at 22:10; Stop 04/28/20 at 22:10; Status DC Lidocaine HCl (Lidocaine Pf 2% Vial) 5 ml STK-MED ONCE .ROUTE ; Start 04/28/20 at 22:10; Stop 04/28/20 at 22:10; Status DC Fentanyl Citrate (Fentanyl 2ml Vial) 100 mcg STK-MED ONCE .ROUTE ; Start 04/28/20 at 22:10; Stop 04/28/20 at 22:11; Status DC Lidocaine HCl (Lidocaine 1% 20ml Vial) 20 ml STK-MED ONCE .ROUTE ; Start 04/28/20 at 22:22; Stop 04/28/20 at 22:22; Status DC Ringer's Solution 1,000 ml @ 30 mls/hr Q24H IV ; Start 04/28/20 at 22:22; Stop 04/29/20 at 10:21 Lidocaine HCl (Xylocaine-Mpf 1% 2ml Vial) 2 ml PRN 1X PRN ID PRIOR TO IV START; Start 04/28/20 at 22:30; Stop 04/29/20 at 22:29 Prochlorperazine Edisylate (Compazine) 5 mg PACU PRN PRN IV NAUSEA, MRX1; Start 04/28/20 at 22:30; Stop 04/29/20 at 22:29 Bupivacaine HCl (Sensorcaine Mpf 0.5%) 30 ml STK-MED ONCE .ROUTE ; Start 04/19 at 22:22; Stop 04/28/20 at 22:22; Status DC Famotidine (Pepcid Vial) 20 mg STK-MED ONCE .ROUTE ; Start 04/28/20 at 22:38; Stop 04/28/20 at 22:38; Status DC Active Scripts Active Reported Gabapentin (Gabapentin) 100 Mg Capsule 100 Mg PO HS Meloxicam 15 Mg Tablet 1 Tab PO DAILY 30 Days Trazodone Hcl 50 Mg Tablet 25 Mg PO HS Effexor Xr (Venlafaxine Hcl) 150 Mg Cap.er.24h 50 Mg PO DAILY Aspirin 81 Mg Tab.chew 1 Tab PO DAILY FENTANYL 25mcg/hr (Fentanyl) 1 Each Patch.td72 1 Patch TP Q3DAYS Plaquenil (Hydroxychloroquine Sulfate) 200 Mg Tablet 200 Mg PO DAILY Tums (Calcium Carbonate) 200 Mg Tab.chew 1,177 Mg PO PRN PRN Melatonin 3 Mg Tablet (Melatonin/Pyridoxine) 1 Each Tablet 1 Each PO DAILY Multi-Vitamin Daily (Multivitamin) 1 Each Tablet 1 Each PO DAILY Fish Oil [place]-3 Softgel ([place]-3/Dha/Epa/Fish Oil) 1 Each Capsule.dr 1 Each PO BID Cholest Off (Plant Stanol Aniya) 450 Mg Tablet 900 Mg PO BID Flonase (Fluticasone Propionate) 16 Gm [place].susp 2 [place] NS DAILY Qvar 80MCG Inhaler (Beclomethasone Dipropionate) 8.7 Gm Aer.w.adap 2 Puff IH DAILY Dicyclomine Hcl 20 Mg Tablet 1 Tab PO BID Albuterol Sulfate Hfa Inhaler (Albuterol Sulfate) 8.5 Gm Hfa.aer.ad 8.5 Gm IH PRN BID PRN Celexa (Citalopram Hydrobromide) 10 Mg Tablet 30 Mg PO DAILY Omeprazole 40 Mg Capsule.dr 40 Mg PO BID Atenolol 25 Mg Tablet 12.5 Mg PO DAILY Norvasc (Amlodipine Besylate) 2.5 Mg Tablet 2.5 Mg PO DAILY Pilocarpine Hcl 5 Mg Tablet 7.5 Mg PO TID Glucosamine (Glucosamine Sulfate 2KCL) 1,000 Mg Tablet 1,500 Mg PO DAILY Colace (Docusate Sodium) 100 Mg Capsule 100 Mg PO DAILY Calcium + Vitamin D Tablet (Calcium Carbonate/Vitamin D3) 1 Each Tablet 500 Mg PO DAILY Allergies Allergies: Coded Allergies: Horse/Equine Containing Products (Verified Allergy, Severe, Itching, 12/07/13) hives tramadol (Verified Allergy, Severe, Anxiety, 12/07/13) "makes me crazy" Cephalosporins (Verified Allergy, Intermediate, Diarrhea, 07/26/14) cefditoren (Verified Allergy, Intermediate, Diarrhea, 07/26/14) codeine (Verified Allergy, Intermediate, 12/07/13) levofloxacin (Verified Allergy, Intermediate, 12/07/13) morphine (Verified Allergy, Intermediate, 12/07/13) Physical Exam General: Alert, Oriented X3, No acute distress HEENT: Atraumatic, EOMI Lungs: Other (Respirations are unlabored with symmetric chest rise) Heart: Regular rate Abdomen: Soft, No tenderness Extremities: No edema, Normal pulses Skin: Other (Pertinent integumentary exam as per musculoskeletal) Neuro: Normal speech, Strength at 5/5 X4 ext, Sensation intact Psych/Mental Status: Mental status NL, Mood NL MUSCULOSKELETAL: Other (Examination of her left upper extremity reveals skin abrasions and tears over her ulnar-sided posterior distal forearm and radial sided wrist. The ulnar wound, I am able to probe down to bone with a sterile Q- tip. She has gross deformity present. She is able to wiggle her fingers.) Vitals VITALS Vital Signs Date Time Temp Pulse Resp B/P (MAP) Pulse Ox O2 Delivery O2 Flow Rate FiO2 04/28/20 20:13 74 18 181/79 (113) 92 Room Air 04/28/20 18:42 98.7 98.7 Labs Labs Laboratory Tests Test 04/28/20 18:53 04/28/20 21:11 White Blood Count 5.2 x10^3/uL (4.0-11.0) Red Blood Count 3.13 x10^6/uL (3.50-5.40) Hemoglobin 10.1 g/dL (12.0-15.5) Hematocrit 29.0 % (36.0-47.0) Mean Corpuscular Volume 92 fL (79-100) Mean Corpuscular Hemoglobin 32 pg (25-35) Mean Corpuscular Hemoglobin Concent 35 g/dL (31-37) Red Cell Distribution Width 14.3 % (11.5-14.5) Platelet Count 252 x10^3/uL (140-400) Neutrophils (%) (Auto) 71 % (31-73) Lymphocytes (%) (Auto) 18 % (24-48) Monocytes (%) (Auto) 8 % (0-9) Eosinophils (%) (Auto) 3 % (0-3) Basophils (%) (Auto) 1 % (0-3) Neutrophils # (Auto) 3.7 x10^3/uL (1.8-7.7) Lymphocytes # (Auto) 0.9 x10^3/uL (1.0-4.8) Monocytes # (Auto) 0.4 x10^3/uL (0.0-1.1) Eosinophils # (Auto) 0.1 x10^3/uL (0.0-0.7) Basophils # (Auto) 0.0 x10^3/uL (0.0-0.2) Sodium Level 141 mmol/L (136-145) Potassium Level 4.3 mmol/L (3.5-5.1) Chloride Level 108 mmol/L (98-107) Carbon Dioxide Level 26 mmol/L (21-32) Anion Gap 7 (6-14) Blood Urea Nitrogen 28 mg/dL (7-20) Creatinine 1.4 mg/dL (0.6-1.0) Estimated GFR (Cockcroft-Gault) 35.4 Glucose Level 111 mg/dL (70-99) Calcium Level 9.4 mg/dL (8.5-10.1) SARS-CoV-2 Antigen (Rapid) Negative (NEGATIVE) Laboratory Tests Test 04/28/20 18:53 04/28/20 21:11 White Blood Count 5.2 x10^3/uL (4.0-11.0) Red Blood Count 3.13 x10^6/uL (3.50-5.40) Hemoglobin 10.1 g/dL (12.0-15.5) Hematocrit 29.0 % (36.0-47.0) Mean Corpuscular Volume 92 fL (79-100) Mean Corpuscular Hemoglobin 32 pg (25-35) Mean Corpuscular Hemoglobin Concent 35 g/dL (31-37) Red Cell Distribution Width 14.3 % (11.5-14.5) Platelet Count 252 x10^3/uL (140-400) Neutrophils (%) (Auto) 71 % (31-73) Lymphocytes (%) (Auto) 18 % (24-48) Monocytes (%) (Auto) 8 % (0-9) Eosinophils (%) (Auto) 3 % (0-3) Basophils (%) (Auto) 1 % (0-3) Neutrophils # (Auto) 3.7 x10^3/uL (1.8-7.7) Lymphocytes # (Auto) 0.9 x10^3/uL (1.0-4.8) Monocytes # (Auto) 0.4 x10^3/uL (0.0-1.1) Eosinophils # (Auto) 0.1 x10^3/uL (0.0-0.7) Basophils # (Auto) 0.0 x10^3/uL (0.0-0.2) Sodium Level 141 mmol/L (136-145) Potassium Level 4.3 mmol/L (3.5-5.1) Chloride Level 108 mmol/L (98-107) Carbon Dioxide Level 26 mmol/L (21-32) Anion Gap 7 (6-14) Blood Urea Nitrogen 28 mg/dL (7-20) Creatinine 1.4 mg/dL (0.6-1.0) Estimated GFR (Cockcroft-Gault) 35.4 Glucose Level 111 mg/dL (70-99) Calcium Level 9.4 mg/dL (8.5-10.1) SARS-CoV-2 Antigen (Rapid) Negative (NEGATIVE) Images Images X-rays were reviewed. Assessment/Plan Assessment/Plan Patient is a very pleasant 89-year-old female with an open left distal radius and ulna fracture. I did discuss with her the need for proceeding with irrigation debridement, antibiotics and stabilization of her fracture. I discus sed ex-fix placement and answered her questions. We will plan on proceeding to the OR when is available tonight. She will be admitted to the hospitalist and on antibiotics. GISELA DACOSTA II, MD Apr 28, 2020 23:17
--- NOTE | 2020-04-28 23:19 | PDOC4 ---
Operative Note Operative Note Date of procedure: 04/28/2020 Surgeon: Parish Dacosta Preoperative diagnosis: Open left distal radius and ulna fracture Postoperative diagnosis: Same Anesthesia: General Procedure performed: Irrigation and debridement down to bone of open fracture Closed reduction and percutaneous pinning left distal radius fracture Blood loss: 10mL Findings:, Acute fractures Complications: none Components inserted: 32 Kwire Reason for procedure: Patient is a very pleasant 89-year-old female with an open fracture. Please see my consult note in her emergency department notes for further details. I had a discussion of the risks, benefits, and alternatives to the above surgery with her and she elected to proceed. Description of procedure: Patient was greeted in the preoperative area by myself or the correct extremity was verified and marked. She was taken back to the operative suite and transferred gently supine to the operating room table with all pressure points padded. She underwent successful induction of a general anesthetic. Nonsterile tourniquet was applied and in place to her left upper arm. We proceeded to prep and drape left upper extremity in her usual sterile fashion and conducted our standard preoperative timeout. After this, I exsanguinated the extremity and insufflated tourniquet to 200 mmHg. I then inspected her soft tissues. She had skin tears over her radial and ulnar posterior forearm. I irrigated everything out. I then identified the open fracture site and extended the wound 1 cm proximal and distal and exposed the fracture site with blunt dissection using a fine tipped hemostat. I placed Homans around the ulnar fracture and thoroughly irrigated the wound out with about 3000 mL of sterile fluid. After this, considering her soft tissue envelope I decided that the less I could violate this was probably in her best interest and I elected to perform a closed reduction and percutaneous pinning which I accomplished using fluoroscopy as a guide. I inserted 1 K wire, her bone was quite soft I then bent and cut the K wire and placed a Yuliya ball. After this, I placed Steri-Strips at the skin tears with Xeroform overlying this. I placed Xeroform around the incision I made as well. I then cut and wrapped gauze around the K wire site. I placed sterile gauze over the rest of the skin tears and wounds. I then placed 4 inch soft roll over this and wrapped it around and then placed a sugar tong splint with a gentle mold, padding her elbow very well. After this, she is awake from anesthesia, tolerated surgery well. No complications. At the conclusion, she was extubated and transferred gently supine to the recovery room cart and taken to PACU in stable and extubated condition. Postoperative plan is to admit her to the floor under the care of the hospitalist. I will follow along. She will receive postoperative a ntibiotics. She will be nonweightbearing left upper extremity. PARISH DACOSTA II, MD Apr 28, 2020 23:19
[2020-04-28] MEDS ORDERED: ONDANSETRON PF 4 MG/2 ML VIAL. ONE ×2 (23:36→23:44)
[2020-04-28] MEDS ORDERED: niCARdipine INJ. IV ONE (23:47)
[2020-04-29] VITALS (14 sets, daily range): BP systolic 112–156; BP diastolic 46–72
[2020-04-29] MEDS ORDERED: MORPHINE SULFATE 2 MG/ML VIAL. IV PRN (00:30)
[2020-04-29] MEDS ORDERED: fentaNYL PF VIAL 100 MCG/2 ML VIAL IVP PRN ×2 (00:30)
[2020-04-29] MEDS ORDERED: PROAIR RESPICL90 MCG IH (00:53)
[2020-04-29] MEDS ORDERED: DEXT1DRO7 OP (00:55)
[2020-04-29] MEDS ORDERED: DICL100G54 TP (00:56)
[2020-04-29] MEDS: HYDROcodone/APAP 5/325MG 1 TAB TABLET PO PRN ×4 (01:29→20:25)
[2020-04-29] MEDS ORDERED: HYDR2TAB31 PO (02:05)
[2020-04-29] MEDS ORDERED: HYDROmorphone 2 MG TABLET PO PRN (02:15)
[2020-04-29] MEDS: ceFAZolin SODIUM IV Push 1 GM VIAL. IVP SCH ×3 (02:44→13:14)
[2020-04-29 05:42] LABS: BASO % 1 % (0-3); EOS # 0.1 x10^3/uL (0.0-0.7); EOS % 2 % (0-3); HEMATOCRIT 25.4 % (36.0-47.0); HEMOGLOBIN 8.6 g/dL (12.0-15.5); LYMPH % 18 % (24-48); MEAN CORPUSCULAR HEMOGLOBIN 31 pg (25-35); MEAN CORPUSCULAR HGB CONC 34 g/dL (31-37); MEAN CORPUSCULAR VOLUME 93 fL (79-100); MONO # 0.5 x10^3/uL (0.0-1.1); MONO % 8 % (0-9); NEUT # 4.1 x10^3/uL (1.8-7.7); NEUT % 71 % (31-73); PLATELET COUNT 219 x10^3/uL (140-400); RED BLOOD COUNT 2.75 x10^6/uL (3.50-5.40); RED CELL DISTRIBUTION WIDTH 14.3 % (11.5-14.5); WHITE BLOOD COUNT 5.7 x10^3/uL (4.0-11.0)
[2020-04-29 05:49] LABS: CALCIUM 8.9 mg/dL (8.5-10.1); CREATININE 1.3 mg/dL (0.6-1.0); GFR 38.6; POTASSIUM 4.2 mmol/L (3.5-5.1)
--- NOTE | 2020-04-29 08:55 | PDOC ---
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 The pain medication that she is currently getting is working well. She tells me she has not had much pain in her wrist at all, and occasional ache. Vitals Vital Signs Date Time Temp Pulse Resp B/P (MAP) Pulse Ox O2 Delivery O2 Flow Rate FiO2 04/29/20 07:05 98.2 60 18 112/46 (68) 92 Room Air 98.2 04/29/20 04:50 10.0 Labs Laboratory Tests Test 04/28/20 18:53 04/28/20 21:11 04/29/20 04:33 White Blood Count 5.2 x10^3/uL (4.0-11.0) 5.7 x10^3/uL (4.0-11.0) Red Blood Count 3.13 x10^6/uL (3.50-5.40) 2.75 x10^6/uL (3.50-5.40) Hemoglobin 10.1 g/dL (12.0-15.5) 8.6 g/dL (12.0-15.5) Hematocrit 29.0 % (36.0-47.0) 25.4 % (36.0-47.0) Mean Corpuscular Volume 92 fL (79-100) 93 fL (79-100) Mean Corpuscular Hemoglobin 32 pg (25-35) 31 pg (25-35) Mean Corpuscular Hemoglobin Concent 35 g/dL (31-37) 34 g/dL (31-37) Red Cell Distribution Width 14.3 % (11.5-14.5) 14.3 % (11.5-14.5) Platelet Count 252 x10^3/uL (140-400) 219 x10^3/uL (140-400) Neutrophils (%) (Auto) 71 % (31-73) 71 % (31-73) Lymphocytes (%) (Auto) 18 % (24-48) 18 % (24-48) Monocytes (%) (Auto) 8 % (0-9) 8 % (0-9) Eosinophils (%) (Auto) 3 % (0-3) 2 % (0-3) Basophils (%) (Auto) 1 % (0-3) 1 % (0-3) Neutrophils # (Auto) 3.7 x10^3/uL (1.8-7.7) 4.1 x10^3/uL (1.8-7.7) Lymphocytes # (Auto) 0.9 x10^3/uL (1.0-4.8) 1.0 x10^3/uL (1.0-4.8) Monocytes # (Auto) 0.4 x10^3/uL (0.0-1.1) 0.5 x10^3/uL (0.0-1.1) Eosinophils # (Auto) 0.1 x10^3/uL (0.0-0.7) 0.1 x10^3/uL (0.0-0.7) Basophils # (Auto) 0.0 x10^3/uL (0.0-0.2) 0.0 x10^3/uL (0.0-0.2) Sodium Level 141 mmol/L (136-145) 142 mmol/L (136-145) Potassium Level 4.3 mmol/L (3.5-5.1) 4.2 mmol/L (3.5-5.1) Chloride Level 108 mmol/L (98-107) 109 mmol/L (98-107) Carbon Dioxide Level 26 mmol/L (21-32) 25 mmol/L (21-32) Anion Gap 7 (6-14) 8 (6-14) Blood Urea Nitrogen 28 mg/dL (7-20) 24 mg/dL (7-20) Creatinine 1.4 mg/dL (0.6-1.0) 1.3 mg/dL (0.6-1.0) Estimated GFR (Cockcroft-Gault) 35.4 38.6 Glucose Level 111 mg/dL (70-99) 99 mg/dL (70-99) Calcium Level 9.4 mg/dL (8.5-10.1) 8.9 mg/dL (8.5-10.1) SARS-CoV-2 Antigen (Rapid) Negative (NEGATIVE) Laboratory Tests Test 04/28/20 18:53 04/28/20 21:11 04/29/20 04:33 White Blood Count 5.2 x10^3/uL (4.0-11.0) 5.7 x10^3/uL (4.0-11.0) Red Blood Count 3.13 x10^6/uL (3.50-5.40) 2.75 x10^6/uL (3.50-5.40) Hemoglobin 10.1 g/dL (12.0-15.5) 8.6 g/dL (12.0-15.5) Hematocrit 29.0 % (36.0-47.0) 25.4 % (36.0-47.0) Mean Corpuscular Volume 92 fL (79-100) 93 fL (79-100) Mean Corpuscular Hemoglobin 32 pg (25-35) 31 pg (25-35) Mean Corpuscular Hemoglobin Concent 35 g/dL (31-37) 34 g/dL (31-37) Red Cell Distribution Width 14.3 % (11.5-14.5) 14.3 % (11.5-14.5) Platelet Count 252 x10^3/uL (140-400) 219 x10^3/uL (140-400) Neutrophils (%) (Auto) 71 % (31-73) 71 % (31-73) Lymphocytes (%) (Auto) 18 % (24-48) 18 % (24-48) Monocytes (%) (Auto) 8 % (0-9) 8 % (0-9) Eosinophils (%) (Auto) 3 % (0-3) 2 % (0-3) Basophils (%) (Auto) 1 % (0-3) 1 % (0-3) Neutrophils # (Auto) 3.7 x10^3/uL (1.8-7.7) 4.1 x10^3/uL (1.8-7.7) Lymphocytes # (Auto) 0.9 x10^3/uL (1.0-4.8) 1.0 x10^3/uL (1.0-4.8) Monocytes # (Auto) 0.4 x10^3/uL (0.0-1.1) 0.5 x10^3/uL (0.0-1.1) Eosinophils # (Auto) 0.1 x10^3/uL (0.0-0.7) 0.1 x10^3/uL (0.0-0.7) Basophils # (Auto) 0.0 x10^3/uL (0.0-0.2) 0.0 x10^3/uL (0.0-0.2) Sodium Level 141 mmol/L (136-145) 142 mmol/L (136-145) Potassium Level 4.3 mmol/L (3.5-5.1) 4.2 mmol/L (3.5-5.1) Chloride Level 108 mmol/L (98-107) 109 mmol/L (98-107) Carbon Dioxide Level 26 mmol/L (21-32) 25 mmol/L (21-32) Anion Gap 7 (6-14) 8 (6-14) Blood Urea Nitrogen 28 mg/dL (7-20) 24 mg/dL (7-20) Creatinine 1.4 mg/dL (0.6-1.0) 1.3 mg/dL (0.6-1.0) Estimated GFR (Cockcroft-Gault) 35.4 38.6 Glucose Level 111 mg/dL (70-99) 99 mg/dL (70-99) Calcium Level 9.4 mg/dL (8.5-10.1) 8.9 mg/dL (8.5-10.1) SARS-CoV-2 Antigen (Rapid) Negative (NEGATIVE) Notes She is awake and alert in bed, eating breakfast. She has some edema at her fingertips, she can wiggle all her fingers. Splint is intact. Assessment and Plan We will plan on 24 hours of antibiotics postoperatively and then she can be discharged. She should be nonweightbearing left upper extremity, keep it elevated and keep the splint clean and dry. I discussed her case with her nurse as well as with GISELA Rosado II, MD Apr 29, 2020 08:55
--- NOTE | 2020-04-29 10:05 | NUR ---
SW following. Discussed with RN, pt resides at [facility], room air, GI soft diet, COVID-19 negative. Pt had surgery today. Dr. Molina anticipates possible discharge back to [facility] tomorrow (04/30/2020). ALEJANDRO will continue to follow.
--- NOTE | 2020-04-29 11:24 | PDOC1 ---
History and Physical Date of Service: DOS: DATE: 04/29/20 TIME: 11:18 History of Present Illness: HPI: 89-year-old female who presents with a chief complaint of left wrist injury. Patient states just prior to arrival she fell with an outstretched arm. She noted immediate pain and deformity to her left wrist. She does note some bleeding to the wrist site. States she has had orthopedic surgery in the past by Dr. Herring. Denies any her head or any loss of consciousness. Has been able to ambulate since the fall. Notes the pain is aching and constant. Movement makes the pain worse. Nothing makes the pain better. No other complaints. Patient seen and examined bedside after ORIF with orthopedics. Patient states pain is well controlled. Past Medical/Surgical History: PMH/PSH: Past Medical History: GERD, Heart Disease, Hypertension, STD, vaginal herpes Past Surgical History: Cholecystectomy Allergies: Allergies: Coded Allergies: Horse/Equine Containing Products (Verified Allergy, Severe, Itching, 12/07/13) hives tramadol (Verified Allergy, Severe, Anxiety, 12/07/13) "makes me crazy" Cephalosporins (Verified Allergy, Intermediate, Diarrhea, 07/26/14) cefditoren (Verified Allergy, Intermediate, Diarrhea, 07/26/14) codeine (Verified Allergy, Intermediate, 12/07/13) levofloxacin (Verified Allergy, Intermediate, 12/07/13) morphine (Verified Allergy, Intermediate, 12/07/13) Family History: Family History: Reviewed and none reported Social History: Social History: Smoking Status: Former Smoker Alcohol Use: None Drug Use: None Current Medications: Current Medications Current Medications Cefazolin Sodium (Ancef) 1 gm 1X ONCE IVP Last administered on 04/28/20at 19:42; Start 04/28/20 at 19:30; Stop 04/28/20 at 19:31; Status DC Fentanyl Citrate (Fentanyl 2ml Vial) 50 mcg 1X ONCE IVP Last administered on 04/28/20at 19:43; Start 04/28/20 at 19:30; Stop 04/28/20 at 19:31; Status DC Bupivacaine HCl/ Epinephrine Bitart (Sensorcain-Epi 0.5%-1:111189 Mpf) 30 ml 1X ONCE INJ Last administered on 04/28/20at 20:07; Start 04/28/20 at 20:00; Stop 04/28/20 at 20:01; Status DC Bupivacaine HCl/ Epinephrine Bitart (Sensorcain-Epi 0.5%-1:893970 Mpf) 30 ml 1X ONCE INJ Last administered on 04/28/20at 20:19; Start 04/28/20 at 20:30; Stop 04/28/20 at 20:31; Status DC Ondansetron HCl (Zofran) 4 mg PRN Q8HRS PRN IV NAUSEA/VOMITING 1ST CHOICE; Start 04/28/20 at 21:15; Stop 04/29/20 at 21:14 Morphine Sulfate (Morphine Sulfate) 2 mg PRN Q2HR PRN IV SEVERE PAIN 7-10; Start 04/28/20 at 21:15; Stop 04/29/20 at 02:07; Status DC Propofol (Diprivan) 200 mg STK-MED ONCE IV ; Start 04/28/20 at 22:10; Stop 04/28/20 at 22:10; Status DC Lidocaine HCl (Lidocaine Pf 2% Vial) 5 ml STK-MED ONCE .ROUTE ; Start 04/28/20 at 22:10; Stop 04/28/20 at 22:10; Status DC Fentanyl Citrate (Fentanyl 2ml Vial) 100 mcg STK-MED ONCE .ROUTE ; Start 04/28/20 at 22:10; Stop 04/28/20 at 22:11; Status DC Lidocaine HCl (Lidocaine 1% 20ml Vial) 20 ml STK-MED ONCE .ROUTE ; Start 04/28/20 at 22:22; Stop 04/28/20 at 22:22; Status DC Ringer's Solution 1,000 ml @ 30 mls/hr Q24H IV ; Start 04/28/20 at 22:22; Stop 04/29/20 at 10:21; Status DC Lidocaine HCl (Xylocaine-Mpf 1% 2ml Vial) 2 ml PRN 1X PRN ID PRIOR TO IV START; Start 04/28/20 at 22:30; Stop 04/29/20 at 22:29 Prochlorperazine Edisylate (Compazine) 5 mg PACU PRN PRN IV NAUSEA, MRX1; Start 04/28/20 at 22:30; Stop 04/29/20 at 22:29 Bupivacaine HCl (Sensorcaine Mpf 0.5%) 30 ml STK-MED ONCE .ROUTE ; Start 04/28/20 at 22:22; Stop 04/28/20 at 22:22; Status DC Famotidine (Pepcid Vial) 20 mg STK-MED ONCE .ROUTE ; Start 04/28/20 at 22:38; Stop 04/28/20 at 22:38; Status DC Cefazolin Sodium (Ancef) 1 gm Q6H IVP Last administered on 04/29/20at 08:45; Start 04/29/20 at 02:00; Stop 04/29/20 at 14:01 Ondansetron HCl (Zofran) 4 mg STK-MED ONCE .ROUTE ; Start 04/28/20 at 23:36; Stop 04/28/20 at 23:37; Status DC Ondansetron HCl (Zofran) 4 mg STK-MED ONCE .ROUTE ; Start 04/28/20 at 23:44; Stop 04/28/20 at 23:44; Status DC Nicardipine HCl (Cardene) 25 mg STK-MED ONCE IV ; Start 04/28/20 at 23:47; Stop 04/28/20 at 23:48; Status DC Fentanyl Citrate (Fentanyl 2ml Vial) 50 mcg PRN Q10MIN PRN IVP SEVERE PAIN 7- 10; Start 04/29/20 at 00:30 Fentanyl Citrate (Fentanyl 2ml Vial) 25 mcg PRN Q10MIN PRN IVP SEVERE PAIN 7- 10; Start 04/29/20 at 00:30 Morphine Sulfate (Morphine Sulfate) 2 mg PRN Q10MIN PRN IV SEVERE PAIN 7-10; Start 04/29/20 at 00:30; Stop 04/29/20 at 02:07; Status DC Acetaminophen/ Hydrocodone Bitart (Lortab 5/325) 1 tab PRN Q4HRS PRN PO MODERATE PAIN 4-6 Last administered on 04/29/20at 06:28; Start 04/29/20 at 00:45 Hydromorphone HCl (Dilaudid) 2 mg PRN Q6HRS PRN PO SEVERE PAIN 7-10; Start 04/29/20 at 02:15 Active Scripts Active Reported Dilaudid (Hydromorphone Hcl) 2 Mg Tablet 1 Tab PO PRN Q6HRS PRN MDD 2 Tablet(s) 5 Days Voltaren (Diclofenac Sodium) 100 Gm Gel..gram. 1 Gm TP QID PRN 30 Days apply to affected area(s) Artificial Tears (Dextran 70/Hypromellose) 1 Each Droperette 1 Each OP BID PRN Proair Respiclick (Albuterol Sulfate) 90 Mcg Aer.pow.ba 2 Puff IH PRN Q6HRS PRN Gabapentin (Gabapentin) 100 Mg Capsule 300 Mg PO BID Meloxicam 15 Mg Tablet 1 Tab PO DAILY 30 Days Trazodone Hcl 50 Mg Tablet 25 Mg PO HS Effexor Xr (Venlafaxine Hcl) 150 Mg Cap.er.24h 75 Mg PO DAILY Aspirin 81 Mg Tab.chew 1 Tab PO DAILY FENTANYL 25mcg/hr (Fentanyl) 1 Each Patch.td72 1 Patch TP Q3DAYS Plaquenil (Hydroxychloroquine Sulfate) 200 Mg Tablet 200 Mg PO DAILY Tums (Calcium Carbonate) 200 Mg Tab.chew 1,177 Mg PO PRN PRN Melatonin 3 Mg Tablet (Melatonin/Pyridoxine) 1 Each Tablet 1 Each PO DAILY Multi-Vitamin Daily (Multivitamin) 1 Each Tablet 1 Each PO DAILY Fish Oil [place]-3 Softgel ([place]-3/Dha/Epa/Fish Oil) 1 Each Capsule.dr 1 Each PO BID Cholest Off (Plant Stanol Aniya) 450 Mg Tablet 900 Mg PO BID Flonase (Fluticasone Propionate) 16 Gm Converse.susp 2 Converse NS DAILY Qvar 80MCG Inhaler (Beclomethasone Dipropionate) 8.7 Gm Aer.w.adap 2 Puff IH DAILY Dicyclomine Hcl 20 Mg Tablet 1 Tab PO BID Albuterol Sulfate Hfa Inhaler (Albuterol Sulfate) 8.5 Gm Hfa.aer.ad 8.5 Gm IH PRN BID PRN Celexa (Citalopram Hydrobromide) 10 Mg Tablet 30 Mg PO DAILY Omeprazole 40 Mg Capsule.dr 40 Mg PO BID Atenolol 25 Mg Tablet 12.5 Mg PO DAILY Norvasc (Amlodipine Besylate) 2.5 Mg Tablet 2.5 Mg PO DAILY Pilocarpine Hcl 5 Mg Tablet 7.5 Mg PO TID Glucosamine (Glucosamine Sulfate 2KCL) 1,000 Mg Tablet 1,500 Mg PO DAILY Colace (Docusate Sodium) 100 Mg Capsule 100 Mg PO DAILY Calcium + Vitamin D Tablet (Calcium Carbonate/Vitamin D3) 1 Each Tablet 500 Mg PO DAILY ROS: Review of Systems Review of System REVIEW OF SYSTEMS: GENERAL: Denies weakness SKIN: No bruising, hair changes or rashes. EYES: No blurred, double or loss of vision. NOSE AND THROAT: No history of nosebleeds, hoarseness or sore throat. HEART: No history of palpitations, chest pain or shortness of breath on exertion. LUNGS: Denies cough, hemoptysis, wheezing or shortness of breath. GASTROINTESTINAL: Denies changes in appetite, nausea, vomiting, diarrhea or constipation. GENITOURINARY: No history of frequency, urgency, hesitancy or nocturia. NEUROLOGIC: Denies history of numbness, tingling, or tremor. PSYCHIATRIC: No history of panic, anxiety or depression. ENDOCRINE: No history of heat or cold intolerance, polyuria or polydipsia. EXTREMITIES: Denies joint pain, pain on walking or stiffness. Physical Exam: Vital Signs: Vital Signs Date Time Temp Pulse Resp B/P (MAP) Pulse Ox O2 Delivery O2 Flow Rate FiO2 04/29/20 11:05 98.9 64 19 138/61 (86) 99 98.9 04/29/20 08:00 Mask 04/29/20 04:50 10.0 Physcial Exam: GEN: No apparent distress. Alert and oriented HEENT: Normal cephalic, atraumatic, external auditory canals are patent EYES: Extraocular muscles are intact, pupil are equally round and reactive to light and accommodation MUSCULOSKELETAL: Well developed , well nourished, good range of motion ENDOCRINE: No thyromegaly was palpated LYMPHATICS: No cervical chain or axillary nodes were noted HEMATOPOIETIC: No bruising NECK: Supple, no JVD, no thyromegaly was noted LUNGS: Clear to auscultation in all lung lama without rhonchi or wheezing HEART: RRR, S!, S2 present. Peripheral pulses intact, no obvious murmurs noted ABDOMEN: Soft, nontender. Positive bowel sounds, no organomegaly, normal bowel sounds EXTREMITIES: Left forearm dressings are clean dry and intact. NEUROLOGIC: Normal speech and tone. A&O x 3, moves all extremities, no obvious focal deficits PSYCHIATRIC: Normal affect, normal mood. Stable SKIN: No ulcerations or rashes, good skin turgor, no jaundice VASCULAR: Good capillary refill, neurovascular bundle appears to be intact Labs: Labs: Laboratory Tests Test 04/28/20 18:53 04/28/20 21:11 04/29/20 04:33 White Blood Count 5.2 x10^3/uL (4.0-11.0) 5.7 x10^3/uL (4.0-11.0) Red Blood Count 3.13 x10^6/uL (3.50-5.40) 2.75 x10^6/uL (3.50-5.40) Hemoglobin 10.1 g/dL (12.0-15.5) 8.6 g/dL (12.0-15.5) Hematocrit 29.0 % (36.0-47.0) 25.4 % (36.0-47.0) Mean Corpuscular Volume 92 fL (79-100) 93 fL (79-100) Mean Corpuscular Hemoglobin 32 pg (25-35) 31 pg (25-35) Mean Corpuscular Hemoglobin Concent 35 g/dL (31-37) 34 g/dL (31-37) Red Cell Distribution Width 14.3 % (11.5-14.5) 14.3 % (11.5-14.5) Platelet Count 252 x10^3/uL (140-400) 219 x10^3/uL (140-400) Neutrophils (%) (Auto) 71 % (31-73) 71 % (31-73) Lymphocytes (%) (Auto) 18 % (24-48) 18 % (24-48) Monocytes (%) (Auto) 8 % (0-9) 8 % (0-9) Eosinophils (%) (Auto) 3 % (0-3) 2 % (0-3) Basophils (%) (Auto) 1 % (0-3) 1 % (0-3) Neutrophils # (Auto) 3.7 x10^3/uL (1.8-7.7) 4.1 x10^3/uL (1.8-7.7) Lymphocytes # (Auto) 0.9 x10^3/uL (1.0-4.8) 1.0 x10^3/uL (1.0-4.8) Monocytes # (Auto) 0.4 x10^3/uL (0.0-1.1) 0.5 x10^3/uL (0.0-1.1) Eosinophils # (Auto) 0.1 x10^3/uL (0.0-0.7) 0.1 x10^3/uL (0.0-0.7) Basophils # (Auto) 0.0 x10^3/uL (0.0-0.2) 0.0 x10^3/uL (0.0-0.2) Sodium Level 141 mmol/L (136-145) 142 mmol/L (136-145) Potassium Level 4.3 mmol/L (3.5-5.1) 4.2 mmol/L (3.5-5.1) Chloride Level 108 mmol/L (98-107) 109 mmol/L (98-107) Carbon Dioxide Level 26 mmol/L (21-32) 25 mmol/L (21-32) Anion Gap 7 (6-14) 8 (6-14) Blood Urea Nitrogen 28 mg/dL (7-20) 24 mg/dL (7-20) Creatinine 1.4 mg/dL (0.6-1.0) 1.3 mg/dL (0.6-1.0) Estimated GFR (Cockcroft-Gault) 35.4 38.6 Glucose Level 111 mg/dL (70-99) 99 mg/dL (70-99) Calcium Level 9.4 mg/dL (8.5-10.1) 8.9 mg/dL (8.5-10.1) SARS-CoV-2 Antigen (Rapid) Negative (NEGATIVE) Laboratory Tests Test 04/28/20 18:53 04/28/20 21:11 04/29/20 04:33 White Blood Count 5.2 x10^3/uL (4.0-11.0) 5.7 x10^3/uL (4.0-11.0) Red Blood Count 3.13 x10^6/uL (3.50-5.40) 2.75 x10^6/uL (3.50-5.40) Hemoglobin 10.1 g/dL (12.0-15.5) 8.6 g/dL (12.0-15.5) Hematocrit 29.0 % (36.0-47.0) 25.4 % (36.0-47.0) Mean Corpuscular Volume 92 fL (79-100) 93 fL (79-100) Mean Corpuscular Hemoglobin 32 pg (25-35) 31 pg (25-35) Mean Corpuscular Hemoglobin Concent 35 g/dL (31-37) 34 g/dL (31-37) Red Cell Distribution Width 14.3 % (11.5-14.5) 14.3 % (11.5-14.5) Platelet Count 252 x10^3/uL (140-400) 219 x10^3/uL (140-400) Neutrophils (%) (Auto) 71 % (31-73) 71 % (31-73) Lymphocytes (%) (Auto) 18 % (24-48) 18 % (24-48) Monocytes (%) (Auto) 8 % (0-9) 8 % (0-9) Eosinophils (%) (Auto) 3 % (0-3) 2 % (0-3) Basophils (%) (Auto) 1 % (0-3) 1 % (0-3) Neutrophils # (Auto) 3.7 x10^3/uL (1.8-7.7) 4.1 x10^3/uL (1.8-7.7) Lymphocytes # (Auto) 0.9 x10^3/uL (1.0-4.8) 1.0 x10^3/uL (1.0-4.8) Monocytes # (Auto) 0.4 x10^3/uL (0.0-1.1) 0.5 x10^3/uL (0.0-1.1) Eosinophils # (Auto) 0.1 x10^3/uL (0.0-0.7) 0.1 x10^3/uL (0.0-0.7) Basophils # (Auto) 0.0 x10^3/uL (0.0-0.2) 0.0 x10^3/uL (0.0-0.2) Sodium Level 141 mmol/L (136-145) 142 mmol/L (136-145) Potassium Level 4.3 mmol/L (3.5-5.1) 4.2 mmol/L (3.5-5.1) Chloride Level 108 mmol/L (98-107) 109 mmol/L (98-107) Carbon Dioxide Level 26 mmol/L (21-32) 25 mmol/L (21-32) Anion Gap 7 (6-14) 8 (6-14) Blood Urea Nitrogen 28 mg/dL (7-20) 24 mg/dL (7-20) Creatinine 1.4 mg/dL (0.6-1.0) 1.3 mg/dL (0.6-1.0) Estimated GFR (Cockcroft-Gault) 35.4 38.6 Glucose Level 111 mg/dL (70-99) 99 mg/dL (70-99) Calcium Level 9.4 mg/dL (8.5-10.1) 8.9 mg/dL (8.5-10.1) SARS-CoV-2 Antigen (Rapid) Negative (NEGATIVE) Images: Images Wrist x-ray IMPRESSION: Displaced distal radial and ulnar fractures as above with likely open ulnar fracture. Wrist x-ray after surgery Impression: No significant change in orientation of the distal radial comminuted fractures. Mild reduction of the distal ulnar fracture. Assessment/Plan Assessment/Plan Left distal radial ulnar fracture status post Irrigation and debridement down to bone of open fracture Closed reduction and percutaneous pinning left distal radius fracture 04/28 Acute blood loss anemia BLANCHE due to vasomotor nephropathy Admit to medicine for further management We will continue Ancef for total of 3 doses Appreciate Ortho recommendations IV pain control Heparin for DVT prophylaxis Protonix for GI prophylaxis Regular diet Full code Discussed with RN and SW Disposition anticipate discharge tomorrow Surrogate decision maker is Dory Mckeon Justifications for Admission Other Justification KYAW HARMAN MD Apr 29, 2020 11:24
[2020-04-29] MEDS: FAMOTIDINE 20 MG TABLET. PO SCH (13:13)
[2020-04-30 03:38] VITALS: BP 121/58
--- NOTE | 2020-04-30 05:48 | NUR ---
patient woke up with some confusion , reoriented to situation. complained of pain all over but refused pain medicine . fall precaution remain inplaced with bed alarm on since patient tried to get out of bed without asking for help.
[2020-04-30 07:00] VITALS: BP 171/72
[2020-04-30] MEDS: FAMOTIDINE 20 MG TABLET. PO SCH (08:39)
[2020-04-30 11:00] VITALS: BP 130/56
[2020-04-30] MEDS ORDERED: ACETAMINOPHEN 325 MG TABLET. PO PRN (13:30)
[2020-04-30] MEDS: HYDROcodone/APAP 5/325MG 1 TAB TABLET PO PRN (14:59)
--- NOTE | 2020-05-02 11:41 | PDOC3 ---
[facility]-Discharge Summary Date of Admission: Date of Admission: Apr 29, 2020 Date of Discharge: Date of Discharge: Apr 30, 2020 Admission Diagnosis: Admitting Diagnosis: Left distal radial ulnar fracture BLANCHE due to vasomotor nephropathy Discharge Diagnosis: Discharge Diagnosis: Left distal radial ulnar fracture status post Irrigation and debridement down to bone of open fracture Closed reduction and percutaneous pinning left distal radius fracture 04/28 Acute blood loss anemia BLANCHE due to vasomotor nephropathy Consults: Consults: Orthopedic surgery Procedures: Procedures: ORIF of left wrist Hospital Course: Hospital Course: 89-year-old female who presents with a chief complaint of left wrist injury. Patient states just prior to arrival she fell with an outstretched arm. She noted immediate pain and deformity to her left wrist. She does note some bleeding to the wrist site. States she has had orthopedic surgery in the past by Dr. Herring. Denies any her head or any loss of consciousness. Has been able to ambulate since the fall. Notes the pain is aching and constant. Movement makes the pain worse. Nothing makes the pain better. No other complaints. Patient seen and examined bedside after ORIF with orthopedics. Patient states pain is well controlled. Procedure was well tolerated and there were no postoperative complications. The rest of her hospital course was uneventful. Disposition: Disposition/Orders: D/C to Home Activity: Activity: Resume previous activity Diet: Diet: Regular Medications: Home Meds Reported Medications Hydromorphone Hcl (DILAUDID) 2 Mg Tablet, 1 TAB PO PRN Q6HRS PRN for PAIN MDD 2 Tablet(s) for 5 Days, #10 TAB 0 Refills 04/29/20 Diclofenac Sodium (VOLTAREN) 100 Gm Gel..gram., 1 GM TP QID PRN for osteoarth ritis for 30 Days, #1 EACH 0 Refills apply to affected area(s) 04/29/20 Dextran 70/Hypromellose (ARTIFICIAL TEARS) 1 Each Droperette, 1 EACH OP BID PRN for dry eyes, DROP 04/29/20 Albuterol Sulfate (Proair Respiclick) 90 Mcg Aer.pow.ba, 2 PUFF IH PRN Q6HRS PRN for shortness of breath, #1 INHALER 0 Refills 04/29/20 Gabapentin (GABAPENTIN ) 100 Mg Capsule, 300 MG PO BID for NEUROGENIC PAIN, CAP 01/07/20 Meloxicam (MELOXICAM) 15 Mg Tablet, 1 TAB PO DAILY for inflamm for 30 Days, #30 TAB 0 Refills 01/07/20 Trazodone Hcl (TRAZODONE HCL) 50 Mg Tablet, 25 MG PO HS for sleep, TAB 01/07/20 Venlafaxine Hcl (EFFEXOR XR) 150 Mg Cap.er.24h, 75 MG PO DAILY for depression, CAP.SR 01/07/20 Aspirin (ASPIRIN) 81 Mg Tab.chew, 1 TAB PO DAILY for heart health, #30 TAB 3 Refills 01/07/20 Fentanyl (FENTANYL 25mcg/hr) 1 Each Patch.td72, 1 PATCH TP Q3DAYS for pain, #10 PATCH 01/07/20 Hydroxychloroquine Sulfate (PLAQUENIL) 200 Mg Tablet, 200 MG PO DAILY for unk, TAB 10/22/19 Calcium Carbonate (TUMS) 200 Mg Tab.chew, 1177 MG PO PRN PRN for HEARTBURN / GAS, TAB.CHEW 07/27/14 Melatonin/Pyridoxine (MELATONIN 3 MG TABLET) 1 Each Tablet, 1 EACH PO DAILY 07/27/14 Multivitamin (MULTI-VITAMIN DAILY) 1 Each Tablet, 1 EACH PO DAILY 07/27/14 Sciota-3/Dha/Epa/Fish Oil (FISH OIL OMEGA-3 SOFTGEL) 1 Each Capsule.dr, 1 EACH PO BID 07/27/14 Plant Stanol Aniya (CHOLEST OFF) 450 Mg Tablet, 900 MG PO BID 07/27/14 Fluticasone Propionate (FLONASE) 16 Gm [place].susp, 2 SPRAY NS DAILY, #16 GM 07/27/14 Beclomethasone Dipropionate (QVAR 80MCG INHALER) 8.7 Gm Aer.w.adap, 2 PUFF IH DAILY, #8.7 GM 5 Refills 07/27/14 Dicyclomine Hcl (DICYCLOMINE HCL) 20 Mg Tablet, 1 TAB PO BID, #60 TAB 11 Refills 07/27/14 Albuterol Sulfate (ALBUTEROL SULFATE HFA INHALER) 8.5 Gm Hfa.aer.ad, 8.5 GM IH PRN BID PRN for SHORTNESS OF BREATH 07/26/13 Citalopram Hydrobromide (CELEXA) 10 Mg Tablet, 30 MG PO DAILY 07/26/13 Omeprazole (OMEPRAZOLE) 40 Mg Capsule.dr, 40 MG PO BID 07/26/13 Atenolol (ATENOLOL) 25 Mg Tablet, 12.5 MG PO DAILY 07/26/13 Amlodipine Besylate (NORVASC) 2.5 Mg Tablet, 2.5 MG PO DAILY 07/26/13 Pilocarpine Hcl (PILOCARPINE HCL) 5 Mg Tablet, 7.5 MG PO TID 07/26/13 Glucosamine Sulfate 2KCL (GLUCOSAMINE) 1,000 Mg Tablet, 1500 MG PO DAILY 07/26/13 Docusate Sodium (COLACE) 100 Mg Capsule, 100 MG PO DAILY 07/26/13 Calcium Carbonate/Vitamin D3 (CALCIUM + VITAMIN D TABLET) 1 Each Tablet, 500 MG PO DAILY 07/26/13 Scheduled Amlodipine Besylate (Norvasc), 2.5 MG PO DAILY, (Reported) Aspirin (Aspirin), 1 TAB PO DAILY, (Reported) Atenolol (Atenolol), 12.5 MG PO DAILY, (Reported) Beclomethasone Dipropionate (Qvar 80MCG Inhaler), 2 PUFF IH DAILY, (Reported) Calcium Carbonate/Vitamin D3 (Calcium + Vitamin D Tablet), 500 MG PO DAILY, (Reported) Citalopram Hydrobromide (Celexa), 30 MG PO DAILY, (Reported) Dicyclomine Hcl (Dicyclomine Hcl), 1 TAB PO BID, (Reported) Docusate Sodium (Colace), 100 MG PO DAILY, (Reported) Fentanyl (FENTANYL 25mcg/hr), 1 PATCH TP Q3DAYS, (Reported) Fluticasone Propionate (Flonase), 2 SPRAY NS DAILY, (Reported) Gabapentin (Gabapentin ), 300 MG PO BID, (Reported) Glucosamine Sulfate 2KCL (Glucosamine), 1,500 MG PO DAILY, (Reported) Hydroxychloroquine Sulfate (Plaquenil), 200 MG PO DAILY, (Reported) Melatonin/Pyridoxine (Melatonin 3 Mg Tablet), 1 EACH PO DAILY, (Reported) Meloxicam (Meloxicam), 1 TAB PO DAILY, (Reported) Multivitamin (Multi-Vitamin Daily), 1 EACH PO DAILY, (Reported) Sciota-3/Dha/Epa/Fish Oil (Fish Oil Sciota-3 Softgel), 1 EACH PO BID, (Reported) Omeprazole (Omeprazole), 40 MG PO BID, (Reported) Pilocarpine Hcl (Pilocarpine Hcl), 7.5 MG PO TID, (Reported) Plant Stanol Aniya (Cholest Off), 900 MG PO BID, (Reported) Trazodone Hcl (Trazodone Hcl), 25 MG PO HS, (Reported) Venlafaxine Hcl (Effexor Xr), 75 MG PO DAILY, (Reported) Scheduled PRN Albuterol Sulfate (Albuterol Sulfate Hfa Inhaler), 8.5 GM IH PRN BID PRN for SHORTNESS OF BREATH, (Reported) Albuterol Sulfate (Proair Respiclick), 2 PUFF IH PRN Q6HRS PRN for shortness of breath, (Reported) Calcium Carbonate (Tums), 1,177 MG PO PRN PRN for HEARTBURN / GAS, (Reported) Dextran 70/Hypromellose (Artificial Tears), 1 EACH OP BID PRN for dry eyes, (Reported) Diclofenac Sodium (Voltaren), 1 GM TP QID PRN for osteoarthritis, (Reported) Hydromorphone Hcl (Dilaudid), 1 TAB PO PRN Q6HRS PRN for PAIN, (Reported) Total Time: Total Time: Total time spent was 20 minutes in preparing scripts, discharge planning with SW and RN, and preparing this discharge summary. Justicifation of Admission Dx: Justifications for Admission: Justification of Admission Dx: Yes KYAW HARMAN MD May 02, 2020 11:41
== END 2020-04-30 15:50 | DRG 510 ==
LOC: ER 18:42 → 4 NORTH 21:15
PROVIDERS: ADMIT Internal Medicine; ATTEND Internal Medicine
PROC: 0PSJ34Z Reposition Left Radius with Internal Fixation Device, Percutaneous Approach (ICD-10-PCS; 2020-04-28)
PROC: 2W39X1Z Immobilization of Left Upper Extremity using Splint (ICD-10-PCS; 2020-04-28)
PROC: 0PBH0ZZ Excision of Right Radius, Open Approach (ICD-10-PCS; principal; 2020-04-28 23:00)
DX: S52.502B Unspecified fracture of the lower end of left radius, initial encounter for open fracture type I or II (principal); N17.0 Acute kidney failure with tubular necrosis; D62 Acute posthemorrhagic anemia; Z20.828 Contact with and (suspected) exposure to other viral communicable diseases; I10 Essential (primary) hypertension; S52.602B Unspecified fracture of lower end of left ulna, initial encounter for open fracture type I or II; K21.9 Gastro-esophageal reflux disease without esophagitis; W18.30XA Fall on same level, unspecified, initial encounter; Z87.891 Personal history of nicotine dependence; Z88.5 Allergy status to narcotic agent; Z88.8 Allergy status to other drugs, medicaments and biological substances; Z90.49 Acquired absence of other specified parts of digestive tract; Y93.89 Activity, other specified; Y92.89 Other specified places as the place of occurrence of the external cause; Y99.8 Other external cause status
CPT/HCPCS: 36415; 73080; 73110; 76000; 80048; 85025; 87426; 96361; 96374; 99285; A7015; C1713; J0690; J2405; J2704; J3010; J3490; J7120; G0378; U0003-CS